=== PATIENT | male | born 1970 | race Caucasian/White ===

== ENCOUNTER → 2020-04-28 | Outpatient (CLI) | payer BC ==
--- NOTE | 2020-04-28 23:34 | MR ---
EXAMINATION TYPE: MR wrist LT wo con DATE OF EXAM: 04/28/2020 COMPARISON: None HISTORY: Left wrist pain and swelling x 6 months Multiplanar multiecho imaging of the left wrist was performed without contrast. There is some sclerosis and cystic changes involving the distal scaphoid bone that is consistent with arthritic disease. There is narrowing of radiocarpal joint space. The carpometacarpal joints appear intact. The triangular cartilage appears intact. The flexor and extensor tendons of the wrist appear intact. There is mild subcutaneous edema on the dorsum of the wrist. On the sagittal images there is some mild extension deformity of the lunate in relation to the distal radius. There are small degener ative cysts in the capitate and triquetrum and hamate. IMPRESSION: There is some arthritic joint space narrowing at the radiocarpal joint. There is spurring and scleros is and cystic changes at the scaphoid trapezium joint. Mild posterior subcutaneous edema around the c arpus. No evidence of a fracture. There is some dorsiflexion of the lunate that could relate to some ligamentous instability..
== END | disposition home or self-care (01) ==
LOC: RADMRIMAIN 06:07
PROVIDERS: ATTEND Nurse Practitioner Family
DX: M19.032 Primary osteoarthritis, left wrist (principal)